=== PATIENT | male | born 1955 | race Caucasian/White ===

== ENCOUNTER → 2025-04-30 09:45 | Outpatient (REF) | payer MEDICARE, OTHER, SELFPAY | LOC: RCS 09:45 | PROVIDERS: ATTENDING PHYSICIAN Internal Medicine | DX: I10 Essential (primary) hypertension (principal); R94.31 Abnormal electrocardiogram [ECG] [EKG] | CPT/HCPCS: 93005 ==

== ENCOUNTER → 2025-05-12 14:12 | Outpatient (REF) | payer MEDICARE, OTHER, SELFPAY | LOC: RCS 14:12 | PROVIDERS: ATTENDING PHYSICIAN Internal Medicine | DX: R94.31 Abnormal electrocardiogram [ECG] [EKG] (principal); I10 Essential (primary) hypertension | CPT/HCPCS: 93306 ==

== ENCOUNTER → 2025-06-01 11:40 | Outpatient (REF) | payer MEDICARE, OTHER, SELFPAY | LOC: HWRCS 11:40 | PROVIDERS: ATTENDING PHYSICIAN Internal Medicine Cardiovascular Disease; FAMILY PHYSICIAN Internal Medicine | DX: I48.91 Unspecified atrial fibrillation (principal); R06.09 Other forms of dyspnea | CPT/HCPCS: 78452; 93017; A9500 ==